=== PATIENT | female | born 1950 | race Caucasian/White ===

== ENCOUNTER 2020-07-04 14:40 | Outpatient (CLI) | payer MEDICARE, BC, SELFPAY ==
--- NOTE | ~2020-07-04 | MM_ITS ---
EXAMINATION: MM screening [facility]renna BI w [place] HISTORY: Screening TECHNIQUE: Craniocaudal and mediolateral oblique 3-D tomosynthesis images were obtained and synthetic 2-D images were generated. CAD analysis was submitted and interpreted. COMPARISON: 06/16/2014 BREAST PARENCHYMAL COMPOSITION: The breasts are heterogenously dense, which may obscure small masses. FINDINGS: There is no evidence of suspicious mass, calcification, or architectural distortion to sugg est malignancy in either breast. There has been no suspicious interval change. IMPRESSION: 1. No mammographic evidence of malignancy. 2. Recommend routine screening mammography in one year. BI-RADS Category 1: Negative Reviewed, dictated and finalized at location A.
== END 2020-07-04 14:41 | disposition home or self-care (01) ==
LOC: ANHIMG 14:46
PROVIDERS: PCP Family Medicine; Visit Provider Family Medicine
DX: Z12.31 Encounter for screening mammogram for malignant neoplasm of breast (principal)
CPT/HCPCS: 77063; 77067

== ENCOUNTER 2020-08-28 13:12 | Outpatient (CLI) | payer MEDICARE, BC, SELFPAY ==
--- NOTE | ~2020-08-28 | DEXA_ITS ---
Bone Density Report Name: Petty Tucker Age: 69 Sex: Female Ethnicity: White Date of : 1950 Indication: osteopenia; height loss; postmenopausal Referring Provider: Génesis Masterson Study: Bone densitometry was performed. Exam Date: August 28, 2020 Accession number: [id number] Bone Density: Region BMD T-score Z-score Classification AP Spine (L1-L4) 0.781 -2.4 -0.2 Osteopenia Femoral Neck (Left) 0.569 -2.5 -0.6 Osteoporosis Total Hip (Left) 0.739 -1.7 -0.1 Osteopenia Total Hip Bilateral Avg 0.747 -1.7 -0.1 Osteopenia Femoral Neck (Right) 0.588 -2.3 -0.5 Osteopenia Total Hip (Right) 0.753 -1.6 0.0 Osteopenia World Health Organization criteria for BMD impression classify patients as: Normal (T-score at or above -1.0), Osteopenia (T-score between -1.0 and -2.5), or Osteoporosis (T-score at or below -2.5). 10-year Fracture Risk: FRAX not reported because: Some T-score for Spine Total or Hip Total or Femoral Neck at or below -2.5 Previous Exams: Region Exam Age BMD T-score BMD Change BMD Change Date g/cm2 vs Baseline vs Previous AP Spine(L1-L4) 08/28/2020 69 0.781 -2.4 -0.011(-1.3%) -0.011(-1.3%) 06/16/2014 63 0.792 -2.3 Total Hip(Left) 08/28/2020 69 0.739 -1.7 -0.024(-3.1%) -0.024(-3.1%) 06/16/2014 63 0.763 -1.5 Total Hip(Right) 08/28/2020 69 0.753 -1.6 0.038(5.3%)* 0.038(5.3%)* 06/16/2014 63 0.715 -1.9 *Denotes significance at 95% confidence level, LSC for AP Spine = 0.022 g/cm2, LSC for Total Hip = 0.027 g/cm2 Clinical Information Provided by Patient: Has used the following medications: Vitamin D, Calcium Patient maximum height was 62 Menopause Age: 45 Drinks caffeinated beverages Onset of menses at age 11 Number of children 3 Impression: The patient has osteoporosis, based on the Left Femoral Neck T-score. No significant bone loss was observed. Discussion: INCREASED RISK OF FRACTURE. BONE DENSITY IS UNDESIRABLY LOW AT ONE OR MORE SKELETAL SITES, CONSISTENT WITH POSTMENOPAUSAL OSTEOPOROSIS. This patient's lowest T-score meets the World Health Organization's (WHO) criteria for osteoporosis at one or more sites (T-score -2.5 or below). In untreated patients, the risk of osteoporotic fracture increases approximately two-fold for each 1.0 SD decrease in T-score. Low bone density is not the only risk factor for fracture; also consider factors such as patient's age, frailty or poor health, risk of falling, risk of injury, previous
== END 2020-08-28 13:13 | disposition home or self-care (01) ==
PROVIDERS: PCP Family Medicine; Visit Provider Physician Assistant
DX: M81.0 Age-related osteoporosis without current pathological fracture (principal); M85.89 Other specified disorders of bone density and structure, multiple sites
CPT/HCPCS: 77080

== ENCOUNTER 2021-07-30 14:37 | Outpatient (CLI) | payer MEDICARE, BC, SELFPAY ==
--- NOTE | ~2021-07-30 | MM_ITS ---
EXAMINATION: MM screening brenna BI w [place] HISTORY: Screening mammogram TECHNIQUE: Craniocaudal and mediolateral oblique 3-D tomosynthesis images were obtained and synthetic 2-D images were generated. CAD analysis was submitted and interpreted. COMPARISON: 07/04/2020, 06/16/2014 bilateral screening mammogram examinations BREAST PARENCHYMAL COMPOSITION: The breasts are heterogeneously dense, which may obscure small masses . FINDINGS: There is no evidence of suspicious mass, calcification, or architectural distortion to sugg est malignancy in either breast. There has been no suspicious interval change. IMPRESSION: 1. No mammographic evidence of malignancy. 2. Recommend routine screening mammography in one year. BI-RADS Category 1: Negative Reviewed, dictated and finalized at location A.
== END 2021-07-30 14:38 | disposition home or self-care (01) ==
LOC: ANHIMG 14:39
PROVIDERS: PCP Family Medicine; Visit Provider Family Medicine
DX: Z12.31 Encounter for screening mammogram for malignant neoplasm of breast (principal)
CPT/HCPCS: 77063; 77067

== ENCOUNTER 2022-09-22 08:36 | Outpatient (CLI) | payer MEDICARE, BC, SELFPAY ==
--- NOTE | ~2022-09-22 | MM_ITS ---
EXAMINATION: MM screening brenna BI w [place] HISTORY: Screening mammogram TECHNIQUE: Craniocaudal and mediolateral oblique 3-D tomosynthesis images were obtained and synthetic 2-D images were generated. CAD analysis was submitted and interpreted. COMPARISON: 07/30/2021, 07/04/2020 BREAST PARENCHYMAL COMPOSITION: The breasts are heterogeneously dense, which may obscure small masses . FINDINGS: No suspicious mass, calcification, or architectural distortion are identified in either yeny ast to suggest malignancy. There has been no suspicious interval change. IMPRESSION: 1. No mammographic evidence of malignancy. 2. Recommend routine screening mammography in one year. BI-RADS Category 1: Negative Reviewed, dictated and finalized at location A.
== END 2022-09-22 08:37 | disposition home or self-care (01) ==
PROVIDERS: PCP Family Medicine; Visit Provider Family Medicine
DX: Z12.31 Encounter for screening mammogram for malignant neoplasm of breast (principal)
CPT/HCPCS: 77063; 77067

== ENCOUNTER 2023-10-29 14:50 | Outpatient (CLI) | payer MEDICARE, BC, SELFPAY ==
--- NOTE | ~2023-10-29 | MM_ITS ---
EXAMINATION: MM screening brenna BI w [place] HISTORY: Screening TECHNIQUE: Craniocaudal and mediolateral oblique 3-D tomosynthesis images were obtained and synthetic 2-D images were generated. CAD analysis was submitted and interpreted. COMPARISON: Comparison to multiple prior studies sequentially, with oldest reviewed study dated 06/16. BREAST PARENCHYMAL COMPOSITION: Dense: The breasts are heterogeneously dense, which may obscure small masses FINDINGS: There is no evidence of suspicious mass, calcification, or architectural distortion to sugg est malignancy in either breast. There has been no suspicious interval change. IMPRESSION: 1. No mammographic evidence of malignancy. 2. Recommend routine screening mammography in one year. BI-RADS Category 1: Negative Reviewed, dictated and finalized at location B.
== END 2023-10-29 14:51 | disposition home or self-care (01) ==
PROVIDERS: PCP Family Medicine; Visit Provider Family Medicine
DX: Z12.31 Encounter for screening mammogram for malignant neoplasm of breast (principal)
CPT/HCPCS: 77063; 77067

== ENCOUNTER 2023-12-09 05:46 | Inpatient (IN) | payer MEDICARE, BC, SELFPAY ==
[2023-12-09] VITALS (25 sets, daily range): BP systolic 120–170; BP diastolic 72–86; PULSE 76–129; RESP 16–31; TEMP 36.3–39.5; O2SAT 87–98
--- NOTE | ~2023-12-09 | XR_ITS ---
Clinical Indication: Weakness, Covid PA and lateral views of the chest: Comparison: 09/10/2015 Findings: There is hazy right basilar airspace disease. Left lung clear. Cardiomediastinal silhouett e is within normal limits. Bones and soft tissues are unremarkable. Impression: Right lower lobe pneumonia. Reviewed, dictated and finalized at location . Impression: Right lower lobe pneumonia.
--- NOTE | 2023-12-09 05:55 | ECG_ITS ---
Test Date: 2023-12-09 05:59:18 Measurements Intervals Joseph Rate: 114 P: 44 NH: 143 QRS: 35 QRSD: 87 T: 5 QT: 280 QTc: 387 Interpretive Statements SINUS TACHYCARDIA OTHERWISE WITHIN NORMAL LIMITS No previous ECG available for comparison Electronically Signed On 12-09-2023 07:24:55 CDT by Yogi Hooper M.D.
[2023-12-09 06:11] LABS: Basophils Absolute Auto 0.1 K/mm3 (0.0-0.1); Basophils Percent Auto 0.6 % (0.2-1.2); Eosinophils Percent Auto 0.3 % (0-4.4); Hematocrit 35.9 % (37.0-47.0); Hemoglobin 12.1 g/dL (12.0-15.0); Immature Granulocyte Absolute 0.05 K/mm3 (0.00-0.031); Immature Granulocyte Percent A 0.5 % (0-0.5); Lymphocytes Absolute Auto 0.79 K/mm3 (0.9-3.2); Lymphocytes Percent Auto 7.6 % (18.3-44.2); Mean Corpuscular HGB Conc 33.7 g/dl (32-36); Mean Corpuscular Hemoglobin 30.4 pg (26-34); Mean Corpuscular Volume 90.2 fl (80-100); Mean Platelet Volume 9.4 fl (7.4-10.4); Monocytes Absolute Auto 0.3 K/mm3 (0.1-0.6); Monocytes Percent Auto 2.7 % (2.6-8.5); Neutrophils Absolute Auto 9.1 K/mm3 (1.3-6.7); Neutrophils Percent Auto 88.3 % (45.5-73.1); Platelet Count Result 241 k/mm3 (150-375); Red Blood Count 3.98 M/mm3 (4.2-5.4); Red Cell Distribution Width 14.7 % (11.5-14.5); White Blood Count 10.4 K/mm3 (4.5-10.0)
[2023-12-09 06:20] LABS: Alanine Aminotransferase 44 U/L (6-35); Albumin Level 4.3 g/dL (3.5-5.1); Alkaline Phosphatase 72 U/L (38-126); Anion Gap 9 mmol/L (4-12); Aspartate Amino Transferase 143 U/L (14-36); Blood Urea Nitrogen 20 mg/dL (7-17); Calcium 9.1 mg/dL (8.4-10.2); Carbon Dioxide 27 mmol/L (22-30); Chloride 90 mmol/L (98-107); Estimated CRCL calculation 34 ml/min; Estimated Glomerular Filt Rate 54; Glucose 122 mg/dL (65-110); Potassium 3.9 mmol/L (3.4-5.0); Sodium 126 mmol/L (137-145)
[2023-12-09 07:15] LABS: Influenza A QL RT-PCR Negative (Negative); Influenza B QL RT-PCR Negative (Negative); RSV RNA, RT-PCR Negative (Negative); SARS-CoV-2 RNA PCR Negative (Negative)
[2023-12-09] MEDS: SODIUM CHLORIDE 0.9% IV 1,000 ML 999 ML IV CONT (07:37)
[2023-12-09] MEDS: ACETAMINOPHEN 500 MG TABLET 1000 MG PO (07:37)
--- NOTE | 2023-12-09 07:46 | ED.GENADULT ---
HPI - General Adult General Chief complaint: Upper Respiratory Infection Stated complaint: covid + thursday, weakness Time Seen by Provider: 12/09/23 07:02 History of Present Illness HPI narrative: Patient is a 73-year-old female who presents ER with weakness and fever. Ongoing for 5 days. Originally negative for COVID but then retested 2 days ago was positive. She is becoming weak to the point where she has trouble ambulating and was helped off the ground by her family. She did not strike her head. She has cough and mild dyspnea. No chest pain or chest pressure. She last took Tylenol last night. She has had poor appetite. She has been on Paxlovid. Related Data Home Medications Medication Instructions Recorded Confirmed calcium 600 mg (as cap PO 03/12/22 carbonate)-vitamin D3 12.5 mcg (500 unit) capsule (Calcium with Vit D3) inulin 2 gram chewable tablet g PO 03/12/22 (Fiber Gummies) vitamins A,C,W-wgut-dqwtgh 4,296 1 cap PO BID 03/12/22 mcg-226 mg-90 mg capsule (PreserVision AREDS) Allergies Allergy/AdvReac Type Severity Reaction Status Date / Time No Known Allergies Allergy Verified 03/12/22 14:05 Review of Systems Review of Systems: All systems reviewed & are unremarkable except as noted in HPI and below Constitutional: Constitutional: Reports chills, Reports fatigue and Reports fever(s) ENT: Denies nasal congestion and Reports sore throat Cardiovascular: Cardiovascular: Reports no additional cardiovascular complaints Respiratory: Respiratory: Reports cough, Denies dyspnea and Denies wheezing Gastrointestinal: Gastrointestinal: Reports no additional gastrointestinal complaints Genitourinary: Genitourinary: Reports no additional female genitourinary complaints [facility] Past Medical History Medical History (Updated 12/09/23 @ 07:51 by Ezequiel Quevedo MD) Age-related osteoporosis without current pathological fracture Cataracts, bilateral Essential (primary) hypertension Hyperlipidemia, unspecified Surgical History Surgical History (Updated 03/12/22 @ 14:10 by Deana Rae MA) H/O rhinoplasty Mid 70's History of carpal tunnel release of both wrists History of surgical removal of skin lesion Left shoulder Family History Family History (Updated 03/12/22 @ 14:12 by Deana Rae MA) Father Acute myocardial infarction Mother Sepsis Social History Social History (Updated 03/12/22 @ 14:12 by Deana Rae MA) Smoking status: Never smoker Alcohol intake: never Substance use: never Lack of Transportation: No Lack of Food: Never True Current Housing: I Have Housing Concerned About Future Housing: No Difficulty Paying Gas/Electric Bills: No Difficulty Paying for Meds: No Currently Unemployed: No Living arrangements: with family 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 HEAD: Normocephalic, atraumatic. NECK: Supple. CHEST: Fine crackles diffusely. No respiratory distress. HEART: Tachycardic and regular. Normal peripheral pulses. ABDOMEN: Soft, nontender, nondistended. EXTREMITIES: Normal range of motion. No edema. SKIN: Warm, dry, no rash. NEURO: Alert and oriented x3. PSYCH: Normal mood and affect. Course Course Emergency Course: patient hypoxic on room air and also febrile. Supplemental O2 place. Patient given Tylenol for fever. She also be given 1 L IV fluid is a feel she is likely dry. COVID testing negative here. Blood cultured and started on IV antibiotics. Admit to hospitalist service. Vital Signs Vital signs: Vital Signs Temperature 102.5 F H 12/09/23 05:51 Pulse Rate 116 H 12/09/23 05:51 Respira
[2023-12-09 08:01] LABS: Lactic Acid Reflex 0.9 mmol/L (0.7-2.0)
[2023-12-09 08:52] LABS: Add Urine Microscopic? YES; Appearance Urine Cloudy (Clear); Bacteria Urine None Seen /hpf; Bilirubin Urine Negative (Negative); Blood Urine 3+ (Negative); Color Urine Yellow (Yellow); Glucose Urine UA Negative (Negative); Granular Casts Urine Present /lpf; Ketones Urine 2+ mg/dL (Negative); Leukocyte Esterase Ur 1+ LEU/UL (Negative); Need Manual Microscopic Reviewed; Nitrate Urine Negative (Negative); Protein Urine 3+ mg/dL (Negative); RBC Urine 0-2 /hpf (0-2); Specific Grav Ur 1.022 (1.001-1.035); Squamous Epithelial Cell Urine Few /hpf (Few); WBC Urine 0-5 /hpf (0-3); pH Urine 5.5 (5.0-9.0)
--- NOTE | 2023-12-09 09:00 | ADMGEN ---
This patient, Petty Tucker, was admitted to Medical Room 340-01. Patient/family oriented to hospital policies and general routines including ID bracelet, bed and alarms, visiting hours, pain management, procedures, bathroom and other care routines, personal items, smoking policy, room service/diet, and visiting hours. Information on how to activate the Rapid Response Team has been discussed. Patient/Family are encouraged to report perceived risks to care and to ask questions if they do not understand what they are told or what they should do.
[2023-12-09 09:18] LABS: Acetaminophen < 10 ug/mL (10-30)
[2023-12-09] MEDS: AZITHROMYCIN 500 MG/NS 250 ML 500 MG/250 ML BAG 250 MG IVPB (09:48)
--- NOTE | 2023-12-09 14:09 | PM.IMHP ---
H&P: HPI History of Present Illness Date/Time: 12/09/23 14:09 Chief Complaint: Pneumonia, Hypoxia Narrative: Patient is a 73-year-old female who presents ER with weakness and fever. Ongoing for 5 days. Originally negative for COVID but then retested 2 days ago was positive. She is becoming weak to the point where she has trouble ambulating and was helped off the ground by her family. She did not strike her head. She has cough and mild dyspnea. No chest pain or chest pressure. She last took Tylenol last night. She has had poor appetite. She has been on Paxlovid. CXR: Impression: Right lower lobe pneumonia. BC and UC pending Pertinent labs: WBC 10.4, H/H 12.1/35.9, Na 126, Cr 1.0 UA: LE 1plus Quadrant screen negative Upon evaluation patient reports she is healthy with no past medical history of any cardiac disease or lung disease or kidney disease. On last Thursday patient was feeling weak and did a COVID test which showed negative. She continues to be ill and and visited ER today with a repeat COVID test is negative. Since the chest x-ray was showing right lower lobe pneumonia patient was started on ceftriaxone and azithromycin. [facility] Past Medical History Medical History (Updated 12/09/23 @ 07:51 by Ezequiel Quevedo MD) Age-related osteoporosis without current pathological fracture Cataracts, bilateral Essential (primary) hypertension Hyperlipidemia, unspecified Surgical History Surgical History (Updated 03/12/22 @ 14:10 by Deana Rae MA) H/O rhinoplasty Mid 70's History of carpal tunnel release of both wrists History of surgical removal of skin lesion Left shoulder Family History Family History Father Acute myocardial infarction Mother Sepsis Social History Social History (Updated 03/12/22 @ 14:12 by Deana Rae MA) Smoking status: Never smoker Alcohol intake: never Substance use: never Do You Feel Safe in your Home?: Yes Lack of Transportation: No Lack of Food: Never True Current Housing: I Have Housing Concerned About Future Housing: No Difficulty Paying Gas/Electric Bills: No Difficulty Paying for Meds: No Currently Unemployed: No Education: Bachelor's Degree Difficulty w/ Childcare or Family Care: No Living arrangements: with family 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 Gender identity (if verbalized by the patient): Female Sexual Orientation (if Verbalized by the Patient): Straight or Heterosexual Spiritual care concerns: No Meds Home Medications and Allergies Home Medications Medication Instructions Recorded Confirmed Type calcium 600 mg (as 1 cap PO DAILY 03/12/22 12/09/23 History carbonate)-vitamin D3 12.5 mcg (500 unit) capsule (Calcium with Vit D3) inulin 2 gram chewable tablet 2 g PO DAILY 03/12/22 12/09/23 History (Fiber Gummies) vitamins A,C,G-epko-rphpzd 4,296 1 cap PO BID 03/12/22 12/09/23 History mcg-226 mg-90 mg capsule (PreserVision AREDS) nirmatrelvir 300 mg (150 mg See Rx Instructions PO .COMPLEX 12/07/23 12/09/23 Rx x2)-ritonavir 100 mg tablet,dose #30 ea pack (Paxlovid) omega-3s 800 mg-dha 186.67 mg-epa 1 cap PO DAILY 12/09/23 12/09/23 History 560 mg-fish-vit D3 8.33 mcg capsule (De3 [employer] [place] Benefits) Allergies Allergy/AdvReac Type Severity Reaction Status Date / Time No Known Allergies Allergy Verified 03/12/22 14:05 Vital Signs Vital Signs - 24 hr 12/09/23 05:51 12/09/23 05:53 12/09/23 05:54 Temperature 102.5 F H Pulse Rate 116 H 122 H 118 H Respiratory Rate 18 31 H 29 H Blood Pressure 168/82 H 168/81 H Pulse Oximetry 95 96 95 Oxygen Delivery Room Air Oxygen Flow Rate 12/09/23 06:00 12/09/23 06:01 12/09/23 06:02 Temperature Pulse Rate 116 H 113 H 115 H Respiratory Rate 26 H 27 H 30 H Blood Pressure 170/85 H Pulse Oximetry
[2023-12-09] MEDS: ACETAMINOPHEN 325 MG TABLET 650 MG PO (19:41)
[2023-12-10 04:00] VITALS: BP 135/55; PULSE 97; RESP 20; TEMP 36.8; O2SAT 92
[2023-12-10 07:57] LABS: Hematocrit 30.7 % (37.0-47.0); Hemoglobin 10.4 g/dL (12.0-15.0); Mean Corpuscular HGB Conc 33.9 g/dl (32-36); Mean Corpuscular Hemoglobin 30.3 pg (26-34); Mean Corpuscular Volume 89.5 fl (80-100); Mean Platelet Volume 9.3 fl (7.4-10.4); Platelet Count Result 207 k/mm3 (150-375); Red Blood Count 3.43 M/mm3 (4.2-5.4); Red Cell Distribution Width 14.9 % (11.5-14.5); White Blood Count 7.5 K/mm3 (4.5-10.0)
[2023-12-10 08:09] LABS: Alanine Aminotransferase 51 U/L (6-35); Albumin Level 3.4 g/dL (3.5-5.1); Alkaline Phosphatase 67 U/L (38-126); Anion Gap 5 mmol/L (4-12); Aspartate Amino Transferase 142 U/L (14-36); Bilirubin,Total 0.6 mg/dL (0.2-1.3); Blood Urea Nitrogen 17 mg/dL (7-17); Calcium 8.2 mg/dL (8.4-10.2); Carbon Dioxide 28 mmol/L (22-30); Chloride 94 mmol/L (98-107); Estimated CRCL calculation 42 ml/min; Estimated Glomerular Filt Rate > 60; Glucose 92 mg/dL (65-110); Potassium 3.3 mmol/L (3.4-5.0); Sodium 127 mmol/L (137-145)
[2023-12-10 08:48] VITALS: O2SAT 95
[2023-12-10 09:00] VITALS: TEMP 37.4
[2023-12-10] MEDS: ENOXAPARIN 40 MG/0.4 ML SYRINGE SUB-Q (09:24)
[2023-12-10] MEDS: AZITHROMYCIN 500 MG/NS 250 ML 500 MG/250 ML BAG 250 MG IVPB (09:25)
[2023-12-10 09:30] VITALS: TEMP 37.4; O2SAT 95
[2023-12-10] MEDS: ACETAMINOPHEN 325 MG TABLET 650 MG PO (09:30)
[2023-12-10 14:00] VITALS: BP 140/70; PULSE 83; RESP 20; TEMP 36.9; O2SAT 97
--- NOTE | 2023-12-10 17:40 | PM.IMPN ---
Progress Note: A&P Assessment and Plan (1) Pneumonia: Code(s): J18.9 - Pneumonia, unspecified organism Status: Acute (2) Hypoxia: Code(s): R09.02 - Hypoxemia Status: Acute Plan #PNA Vital signs improved and stable Started on Amoxil clav and azithromycin monitor cultures encourage oral intake Wean oxygen as needed Subjective Date/time seen: 12/10/23 17:40 Interval history: Acute events overnight. Patient's continuing the need of oxygen. Currently on amoxicillin and azithromycin . Exam Narrative: GENERAL: Well-appearing, well-nourished, and in no acute distress. HEAD: Normocephalic, atraumatic. NECK: Supple. CHEST: Fine crackles diffusely. No respiratory distress. HEART: Tachycardic and regular. Normal peripheral pulses. ABDOMEN: Soft, nontender, nondistended. EXTREMITIES: Normal range of motion. No edema. SKIN: Warm, dry, no rash. NEURO: Alert and oriented x3. PSYCH: Normal mood and affect. Objective Data Vital Signs Vital Signs: Vital Signs - 24 hr 12/09/23 18:28 12/09/23 19:24 12/09/23 19:40 Temperature 103.1 F H Pulse Rate 129 H 110 H 117 H Respiratory Rate 30 H 24 H 26 H Blood Pressure 146/74 H 149/72 H Pulse Oximetry 92 92 95 Oxygen Delivery Nasal Cannula Oxygen Flow Rate 2 12/09/23 19:48 12/09/23 20:42 12/09/23 23:36 Temperature 100.1 F H 98.2 F Pulse Rate 92 Respiratory Rate 18 Blood Pressure Pulse Oximetry 95 96 Oxygen Delivery Nasal Cannula Oxygen Flow Rate 3 12/10/23 04:00 12/09/23 21:00 12/10/23 08:48 Temperature 98.2 F Pulse Rate 97 Respiratory Rate 20 Blood Pressure 135/55 L Pulse Oximetry 92 95 95 Oxygen Delivery Nasal Cannula Nasal Cannula Oxygen Flow Rate 3 3 12/10/23 09:00 12/10/23 09:30 12/10/23 09:30 Temperature 99.3 F 99.3 F Pulse Rate Respiratory Rate Blood Pressure Pulse Oximetry 95 Oxygen Delivery Nasal Cannula Oxygen Flow Rate 3 12/10/23 14:00 Temperature 98.5 F Pulse Rate 83 Respiratory Rate 20 Blood Pressure 140/70 Pulse Oximetry 97 Oxygen Delivery Oxygen Flow Rate Intake/Output Intake/Output: Intake & Output 12/07/23 12/08/23 12/09/23 12/10/23 23:59 23:59 23:59 23:59 Intake Total 2210 1020 Output Total 400 300 Balance 1810 720 Meds/Results Medications: Active Medications Generic Name Dose Route Start Last Admin Trade Name Freq PRN Reason Stop Dose Admin Acetaminophen 650 mg 12/09/23 08:18 12/10/23 09:30 Acetaminophen 325 Mg Tablet PO 650 mg Q4H PRN Administration Mild Pain (1-3) or Fever Hydrocodone Bitart/Acetaminophen 1 tab 12/09/23 08:18 Hydrocodone/Acetaminophen (*Crx) 5-325 Mg Tablet PO Q4H PRN Pain Rated 4-6 Amoxicillin/Clavulanate Potassium 1 tablet 12/11/23 09:00 Amoxicillin/Clavulanate K 875-125 Mg Tab PO 12/13/23 21:01 Q12HR MILDRED Azithromycin 500 mg 12/11/23 09:00 Azithromycin 250 Mg Tablet PO 12/13/23 09:01 DAILY MILDRED Enoxaparin Sodium 40 mg 12/10/23 09:00 12/10/23 09:24 Enoxaparin 40 Mg/0.4 Ml Syringe SUB-Q 40 mg DAILY MILDRED Administration Promethazine HCl 12.5 mg 12/09/23 08:18 Promethazine Hcl 25 Mg/Ml Ampul IV PUSH Q6H PRN Nausea Radiology Results: ITS Impressions Chest X-Ray 12/09/23 06:22 Impression: Right lower lobe pneumonia. Labs Labs: Laboratory Results - last 24 hr 12/10/23 07:52 WBC 7.5 RBC 3.43 L Hgb 10.4 L Hct 30.7 L MCV 89.5 MCH 30.3 MCHC 33.9 RDW 14.9 H Plt Count 207 MPV 9.3 Sodium 127 L Potassium 3.3 L Chloride 94 L Carbon Dioxide 28 Anion Gap 5 BUN 17 Creatinine 0.80 Estim Creat Clear Calc 42 Estimated GFR > 60 Glucose 92 Calcium 8.2 L Total Bilirubin 0.6 AST 142 H ALT 51 H Alkaline Phosphatase 67 Total Protein 7.0 Albumin 3.4 L Hospitalist MIPS Advance Care Plan I have confirmed that the patient's Advanced Care Plan is present,
[2023-12-10 21:28] VITALS: BP 137/68; PULSE 99; RESP 16; TEMP 36.6; O2SAT 93
[2023-12-11] VITALS (10 sets, daily range): BP systolic 121–130; BP diastolic 55–62; PULSE 88–119; RESP 16–24; TEMP 36.7–38.2; O2SAT 86–97
[2023-12-11 05:16] LABS: Hematocrit 30.3 % (37.0-47.0); Mean Corpuscular Hemoglobin 29.4 pg (26-34); Mean Corpuscular Volume 89.1 fl (80-100); Mean Platelet Volume 9.8 fl (7.4-10.4); Platelet Count Result 241 k/mm3 (150-375); Red Cell Distribution Width 14.6 % (11.5-14.5); White Blood Count 7.4 K/mm3 (4.5-10.0)
[2023-12-11 05:31] LABS: Alanine Aminotransferase 74 U/L (6-35); Albumin Level 3.3 g/dL (3.5-5.1); Alkaline Phosphatase 86 U/L (38-126); Anion Gap 6 mmol/L (4-12); Aspartate Amino Transferase 192 U/L (14-36); Bilirubin,Total 0.5 mg/dL (0.2-1.3); Blood Urea Nitrogen 11 mg/dL (7-17); Calcium 8.2 mg/dL (8.4-10.2); Carbon Dioxide 31 mmol/L (22-30); Chloride 92 mmol/L (98-107); Estimated CRCL calculation 54 ml/min; Estimated Glomerular Filt Rate > 60; Glucose 102 mg/dL (65-110); Potassium 2.9 mmol/L (3.4-5.0); Sodium 129 mmol/L (137-145)
[2023-12-11] MEDS: ACETAMINOPHEN 325 MG TABLET 650 MG PO (06:04)
[2023-12-11] MEDS: AZITHROMYCIN 250 MG TABLET 500 MG PO (08:26)
[2023-12-11] MEDS: AMOXICILLIN/CLAVULANATE K 875-125 MG TAB 1 TABLET PO (08:26)
[2023-12-11] MEDS: ENOXAPARIN 40 MG/0.4 ML SYRINGE SUB-Q (08:26)
[2023-12-11] MEDS: polyethylene glycoL 3350 17 GM POWD.PACK PO (09:17)
[2023-12-11] MEDS: POTASSIUM CHLORIDE 20 MEQ PACKET (FOR LIQUID) 60 MEQ PO (11:41)
[2023-12-11 13:31] LABS: Magnesium 2.5 mg/dL (1.6-2.3); Potassium 4.3 mmol/L (3.4-5.0)
--- NOTE | 2023-12-11 14:23 | HOMEO2EVAL ---
Evaluation was performed at [facility] Home Oxygen Evaluation RC: Home Oxygen (O2) Evaluation Start: 12/11/23 14:01 Freq: ONCE Status: Active Protocol: RPE Activity Type Activity Date Activity User E-sign Co-sign Detail Recorded Client Recorded Date Recorded By Document 12/11/23 13:55 [email or web address] [email or web address] 12/11/23 14:23 DJO Document 12/11/23 14:00 [email or web address] [email or web address] 12/11/23 14:23 DJO Document 12/11/23 14:05 [email or web address] [email or web address] 12/11/23 14:23 DJO Document 12/11/23 14:10 [email or web address] [email or web address] 12/11/23 14:23 DJO Document 12/11/23 14:20 [email or web address] [email or web address] 12/11/23 14:23 DJO 12/11/23 12/11/23 12/11/23 13:55 14:00 14:05 Home O2 Evaluation [Oxygen] -Test Phase Resting Exercise Exercise -Oxygen Delivery Room Air Nasal Cannula -Oxygen Flow Rate (L/min) 1 [Pulse Oximetry] -Pulse Oximetry (90-100 %) 94 86 L 88 L [Pulse Rate] -Pulse Rate (60-100 beats/min) 97 116 H 119 H [Evaluation] -Activity Tolerance [Charges] -Evaluation Charges O2 Evaluation by Pulmonary 12/11/23 12/11/23 14:10 14:20 Home O2 Evaluation [Oxygen] -Test Phase Exercise Resting -Oxygen Delivery Nasal Cannula Room Air -Oxygen Flow Rate (L/min) 2 [Pulse Oximetry] -Pulse Oximetry (90-100 %) 91 93 [Pulse Rate] -Pulse Rate (60-100 beats/min) 118 H 99 [Evaluation] -Activity Tolerance Good [Charges] -Evaluation Charges
--- NOTE | 2023-12-11 15:06 | PM.DS ---
DS: Admitting Diagnosis Discharge Date 12/11/2023 Admitting Diagnosis Upper Respiratory Infection DS: Discharge Diagnosis Discharge Diagnosis (1) Pneumonia: Code(s): J18.9 - Pneumonia, unspecified organism Status: Acute (2) Hypoxia: Code(s): R09.02 - Hypoxemia Status: Acute Plan #PNA Vital signs improved and stable Started on Amoxil clav and azithromycin monitor cultures encourage oral intake Wean oxygen as needed DS: Summary Hospital Course Hospital Course: Patient is a 73-year-old female who presents ER with weakness and fever. Ongoing for 5 days. Originally negative for COVID but then retested 2 days ago was positive. She is becoming weak to the point where she has trouble ambulating and was helped off the ground by her family. She did not strike her head. She has cough and mild dyspnea. No chest pain or chest pressure. She last took Tylenol last night. She has had poor appetite. She has been on Paxlovid. CXR: Impression: Right lower lobe pneumonia. BC and UC pending Pertinent labs: WBC 10.4, H/H 12.1/35.9, Na 126, Cr 1.0 UA: LE 1plus Quadrant screen negative Upon evaluation patient reports she is healthy with no past medical history of any cardiac disease or lung disease or kidney disease. On last Thursday patient was feeling weak and did a COVID test which showed negative. She continues to be ill and and visited ER today with a repeat COVID test is negative. Since the chest x-ray was showing right lower lobe pneumonia patient was started on ceftriaxone and azithromycin. Patient is currently doing well but needs oxygen 1-2 L during activity. I believe it is due to acute illness due to pneumonia. Patient will be discharged with amoxicillin clavulanate and azithromycin until 12/12. Patient oxygen necessity has to be evaluated within about 4 weeks for further continuation or not. Status at Discharge Cognitive/behavioral status at discharge: Stable Time Spent with Patient Time attestation: Total time spent providing and/or coordinating discharge services: 45 minutes Exam Narrative: GENERAL: Well-appearing, well-nourished, and in no acute distress. HEAD: Normocephalic, atraumatic. NECK: Supple. CHEST: Fine crackles diffusely. No respiratory distress. HEART: Tachycardic and regular. Normal peripheral pulses. ABDOMEN: Soft, nontender, nondistended. EXTREMITIES: Normal range of motion. No edema. SKIN: Warm, dry, no rash. NEURO: Alert and oriented x3. PSYCH: Normal mood and affect. DS: Data Data Completed and Pending Labs on day of discharge: Labs from last 24 hours 12/11/23 12/11/23 12:56 04:36 WBC 7.4 RBC 3.40 L Hgb 10.0 L Hct 30.3 L MCV 89.1 MCH 29.4 MCHC 33.0 RDW 14.6 H Plt Count 241 MPV 9.8 Sodium 129 L Potassium 4.3 2.9 L Chloride 92 L Carbon Dioxide 31 H Anion Gap 6 BUN 11 D Creatinine 0.60 L Estim Creat Clear Calc 54 Estimated GFR > 60 Glucose 102 Calcium 8.2 L Magnesium 2.5 H Total Bilirubin 0.5 AST 192 H ALT 74 H Alkaline Phosphatase 86 Total Protein 7.0 Albumin 3.3 L Preliminary micro results at discharge 12/09/23 07:42 Blood Culture - Preliminary Blood 12/09/23 07:42 Blood Culture - Preliminary Blood Discharge Plan Discharge Attending physician on discharge: Heath Cardenas Discharging Clinician: Heath Cardenas Anticipated Discharge Date/Time: 12/11/23 15:02 Patient Disposition: Home Health Service Activity: as tolerated Diet: regular Discharge Instructions: Continued antibiotic until 12/12 Patient discharged with home oxygen Patient oxygen necessity has to be evaluated after 4 weeks. Follow-up with PCP upon discharge in a week Per Care Coordination: [facility] will contact you prior to their first visit. [facility] will follow for PT/OT eval and treat. [facility] can be contacted at [phone].
--- NOTE | 2023-12-12 09:06 | PC.NURSE ---
This patient, Petty Tucker, called in stating there was a discrepancy with her azithromycin that was sent into [facility] pharmacy in [place] on [facility] for her discharge from this hospital yesterday. This RN called Dr. Cardenas for clarification. This patient is to take azithromycin 500 mg daily for today 12/11 and tomorrow 12/12. New prescription was sent into the pharmacy. Patient notified.
== END 2023-12-11 15:55 | disposition home health service (06) | DRG 195 ==
LOC: ANHED 07:51 → ANH3MED 08:47
PROVIDERS: Emergency Medicine; Admitting Provider General Practice; Emergency Provider Emergency Medicine; PCP Family Medicine; Visit Provider General Practice
DX: J18.9 Pneumonia, unspecified organism (principal); I10 Essential (primary) hypertension; E78.5 Hyperlipidemia, unspecified; Z20.822 Contact with and (suspected) exposure to COVID-19
CPT/HCPCS: 36415; 71046; 80053; 80143; 81001; 83605; 83735; 84132; 85025; 85027; 87040; 87086; 87637; 93005; 94618; 96361; 96374; 99285; A9270; G0378; J0456; J0696; J1650; J7030

== ENCOUNTER 2024-12-09 14:54 | Outpatient (CLI) | payer MEDICARE, BC, SELFPAY ==
--- NOTE | ~2024-12-09 | MM_ITS ---
EXAMINATION: MM screening [facility] [place] HISTORY: Screening TECHNIQUE: Craniocaudal and mediolateral oblique 3-D tomosynthesis images were obtained and synthetic 2-D images were generated. CAD analysis was submitted and interpreted. COMPARISON: 09/22/2022 BREAST PARENCHYMAL COMPOSITION: The breasts are heterogeneously dense, which may obscure small masses. FINDINGS: There is no evidence of suspicious mass, calcification, or architectural distortion to suggest malignancy. There has been no suspicious interval change. IMPRESSION: 1. No mammographic evidence of malignancy. Recommend routine screening mammography in one year. BI-RADS Category 2: Benign finding(s) Reviewed, dictated and finalized at location Q. IMPRESSION: 1. No mammographic evidence of malignancy. Recommend routine screening mammogra phy in one year. BI-RADS Category 2: Benign finding(s)
== END 2024-12-09 14:55 | disposition home or self-care (01) ==
LOC: ANHFOHIMG 14:58
PROVIDERS: PCP Family Medicine; Visit Provider Family Medicine
DX: Z12.31 Encounter for screening mammogram for malignant neoplasm of breast (principal)
CPT/HCPCS: 77063; 77067